=== PATIENT | male | born 1990 ===

== ENCOUNTER 2018-06-26 00:35 | Emergency (ER) | payer SELFPAY ==
--- NOTE | 2018-06-26 02:36 | C.PDOC ---
History Of Present Illness 27 year old male presents to the ED for evaluation of left elbow pain. Patient reports that 3 months ago he feel of an escalator and injured his left elbow. Patient states that at that time he did not seek any medical attention. Patient reports that 2 days ago he injured his left elbow again after hitting it against a metal pole. Patient states pain increased which prompted him to come for evaluation. Patient denies LOC, headache, weakness, numbness, fever, chills, nausea, vomit. Time Seen by Provider: 06/26/18 01:20 Chief Complaint (Nursing): Upper Extremity Problem/Injury History Per: Patient History/Exam Limitations: no limitations Onset/Duration Of Symptoms: Days (2) Current Symptoms Are (Timing): Still Present Quality: "Pain" Exacerbating Factor(s): Movement Recent travel outside of the [place]: No Additional History Per: Patient Past Medical History Reviewed: Historical Data, Nursing Documentation, Vital Signs Vital Signs: Last Vital Signs Temp 98.6 F 06/26/18 00:45 Pulse 70 06/26/18 00:45 Resp 18 06/26/18 00:45 BP 122/69 06/26/18 00:45 Pulse Ox 95 06/26/18 00:45 - Medical History PMH: No Chronic Diseases Denies: Chronic Kidney Disease Surgical History: No Surg Hx Family History: States: Unknown Family Hx - Social History Hx Alcohol Use: Yes Hx Substance Use: No - Immunization History Hx Tetanus Toxoid Vaccination: No Hx Influenza Vaccination: No Hx Pneumococcal Vaccination: No Review Of Systems Constitutional: Negative for: Fever, Chills Gastrointestinal: Negative for: Nausea, Vomiting Musculoskeletal: Positive for: Arm Pain Skin: Negative for: Rash Neurological: Negative for: Weakness, Numbness, Headache, Dizziness Physical Exam - Physical Exam Appears: Non-toxic, No Acute Distress Skin: Normal Color, Warm, Dry Head: Atraumatic, Normacephalic Eye(s): bilateral: Normal Inspection Neck: Normal ROM, Supple Extremity: No Normal ROM (decreased left elbow due to pain), Tenderness (left olecranon area), Capillary Refill (< 2 seconds), No Swelling Pulses: Left Radial: Normal, Right Radial: Normal Neurological/Psych: Oriented x3, Normal Speech, Normal Motor, Normal Sensation Gait: Steady ED Course And Treatment O2 Sat by Pulse Oximetry: 95 (ON RA) Pulse Ox Interpretation: Normal - Other Rad Left elbow X-Ray X-Ray: Interpreted by Me, Viewed By Me Interpretation: No FX, no dislocation Progress Note: Plan: - Left elbow X-Ray. Patrick wrap applied by RN. Patient was d/c home with Ortho follow up. Disposition - Disposition Referrals: [facility] at [facility] [Outside] Keny Beck III, MD [Staff Provider] - Disposition: HOME/ ROUTINE Disposition Time: 04:24 Condition: STABLE Additional Instructions: Follow up with Orthopedist within 2-3 days. Return to ED if feel worse. 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 - Scribe Statement The provider has reviewed the documentation as recorded by the Scribe Victorino Arguelles All medical record entries made by the Scribe were at my direction and personally dictated by me. I have reviewed the chart and agree that the record accurately reflects my personal performance of the history, physical exam, medical decision making, and the department course for this patient. I have also personally directed, reviewed, and agree with the discharge instructions and disposition.
[2018-06-26 04:08] VITALS: BP 113/62; PULSE 66; RESP 14; TEMP 97.7
[2018-06-26 04:26] VITALS: O2SAT 95
--- NOTE | 2018-06-26 08:17 | RAD ---
Left elbow three views HISTORY: Elbow injury. Pain. COMPARISON: None available. FINDINGS: No significant elbow joint effusion. No evidence of acute displaced fracture or dislocation. Suboptimal lateral view with suboptimal patient positioning. Repeat lateral view may be helpful clinically indicated. Vertically-oriented lucency through the medial cortex of the proximal medullary cavity of the proximal radius likely represents vascular groove. Impression: Negative acute. If pain persists, consider MRI. Suboptimal lateral view with suboptimal patient positioning. Repeat lateral view may be helpful if clinically indicated.
== END 2018-06-26 04:39 | disposition home or self-care (01) ==
LOC: C.ER 00:35
DX: M25.522 Pain in left elbow (principal)

== ENCOUNTER 2018-06-29 11:50 | Emergency (ER) | payer OTHER ==
[2018-06-29 12:37] LABS: SQUAMOUS EPITHIAL < 1 /hpf (0-5); URINE BILIRUBIN NEGATIVE (NEGATIVE); URINE BLOOD 1+ (NEGATIVE); URINE CLARITY Clear (Clear); URINE COLOR Yellow (YELLOW); URINE GLUCOSE (UA) NORMAL (Normal); URINE LEUKOCYTE ESTERASE TRACE Leu/uL (Negative); URINE PROTEIN NEGATIVE (NEGATIVE); URINE UROBILINOGEN NORMAL mg/dL (0.2-1.0)
[2018-06-29] MEDS ORDERED: cefTRIAXone (Rocephin) 250 mg Inj IM STA (13:41)
--- NOTE | 2018-06-29 13:43 | C.PDOC ---
History Of Present Illness 27 y/o male, otherwise well, presents to the ED complaining of dysuria for the past couple of days. Associated with some white penile discharge and itching to the groin area. Patient admits to having recent unprotected sex 15 days ago, and is concerned about possibility of STD. Otherwise he denies any fever, chills, nausea, vomiting, abdominal pain, or changes in bowel movements. Time Seen by Provider: 06/29/18 12:29 Chief Complaint (Nursing): Male Genitourinary History Per: Patient Onset/Duration Of Symptoms: Days Current Symptoms Are (Timing): Still Present Associated Symptoms: Urinary Symptoms Past Medical History Reviewed: Historical Data, Nursing Documentation, Vital Signs Vital Signs: Last Vital Signs Temp 98.1 F 06/29/18 12:12 Pulse 52 L 06/29/18 12:12 Resp 16 06/29/18 12:12 BP 129/57 L 06/29/18 12:12 Pulse Ox 98 06/29/18 12:12 - Medical History PMH: No Chronic Diseases Denies: Chronic Kidney Disease Family History: States: Unknown Family Hx - Social History Hx Alcohol Use: Yes Hx Substance Use: No - Immunization History Hx Tetanus Toxoid Vaccination: No Hx Influenza Vaccination: No Hx Pneumococcal Vaccination: No Review Of Systems Except As Marked, All Systems Reviewed And Found Negative. Constitutional: Negative for: Fever, Chills Gastrointestinal: Negative for: Nausea, Vomiting, Abdominal Pain, Diarrhea Genitourinary: Positive for: Dysuria, Penile Discharge (white), Other (Itching to groin area). Negative for: Incontinence, Scrotal Pain, Rash Musculoskeletal: Negative for: Back Pain Neurological: Negative for: Weakness Physical Exam - Physical Exam Appears: Non-toxic, No Acute Distress Skin: Warm, Dry Head: Atraumatic, Normacephalic Eye(s): bilateral: Normal Inspection Chest: Symmetrical Male Genital: Normal Inspection (uncircumsized male; no rash or herpitic lesions), No Testicular Tenderness, No Testicular Swelling, Other (No discharge noted on exam) Extremity: Bilateral: Atraumatic, Normal Color And Temperature Neurological/Psych: Oriented x3, Normal Speech ED Course And Treatment O2 Sat by Pulse Oximetry: 98 (RA) Pulse Ox Interpretation: Normal Medical Decision Making Medical Decision Making: Plan: UA and GC/chlamydia sent to the lab. UA shows trace leuks, +blood. Patient treated prophylactically with PO zithro and IM rocephin. Counseled regarding course of discharge and follow-up instructions. Disposition Counseled Patient/Family Regarding: Diagnosis, Need For Followup - Disposition Referrals: [facility] [Outside] Disposition: HOME/ ROUTINE Disposition Time: 13:42 Condition: STABLE Instructions: Urethritis Forms: [facility] (Japanese), General Discharge Instructions - POA Present On Arrival: None - Clinical Impression Clinical Impression: Urethritis - Scribe Statement The provider has reviewed the documentation as recorded by the Scribe (Eden Kenney) Provider Attestation: All medical record entries made by the Scribe were at my direction and personally dictated by me. I have reviewed the chart and agree that the record accurately reflects my personal performance of the history, physical exam, medical decision making, and the department course for this patient. I have also personally directed, reviewed, and agree with the discharge instructions and disposition.
[2018-06-29 13:49] VITALS: BP 101/63; PULSE 58; RESP 18; TEMP 98.7
[2018-06-29 14:38] VITALS: O2SAT 98
== END 2018-06-29 14:20 | disposition home or self-care (01) ==
LOC: C.ER 11:50
DX: N34.2 Other urethritis (principal)

== ENCOUNTER 2018-07-05 17:13 | Emergency (ER) | payer OTHER ==
[2018-07-05 17:26] VITALS: BP 112/70; PULSE 76; RESP 16; TEMP 97.8; O2SAT 98
--- NOTE | 2018-07-05 17:52 | C.PDOC ---
History Of Present Illness 27 y/o male presents to ED with persistent urethral discomfort and white discharge. Patient was seen in ED on 06/29 for same and treated for GC and chlamydia in the ED. Patient states he still feels the same. States he has not had sexual relations since his last visit. Denies dysuria, fever, chills, penile/ testicular pain or swelling. Denies any lesions. Time Seen by Provider: 07/05/18 17:26 Chief Complaint (Nursing): Male Genitourinary History Per: Patient History/Exam Limitations: no limitations Onset/Duration Of Symptoms: Days Current Symptoms Are (Timing): Still Present Past Medical History Reviewed: Historical Data, Nursing Documentation, Vital Signs Vital Signs: Last Vital Signs Temp 97.8 F 07/05/18 17:22 Pulse 76 07/05/18 17:22 Resp 16 07/05/18 17:22 BP 112/70 07/05/18 17:22 Pulse Ox 98 07/05/18 17:22 - Medical History PMH: Denies: Chronic Kidney Disease Surgical History: No Surg Hx Family History: States: Unknown Family Hx - Social History Hx Alcohol Use: Yes Hx Substance Use: No - Immunization History Hx Tetanus Toxoid Vaccination: No Hx Influenza Vaccination: No Hx Pneumococcal Vaccination: No Review Of Systems Constitutional: Negative for: Fever, Chills Gastrointestinal: Negative for: Abdominal Pain Genitourinary: Positive for: Penile Discharge, Other (Urethral discomfort). Negative for: Dysuria, Incontinence, Scrotal Pain, Rash, Penile Pain Physical Exam - Physical Exam Appears: Non-toxic, No Acute Distress Skin: Warm, Dry Head: Normacephalic Eye(s): bilateral: PERRL Chest: Symmetrical Respiratory: No Accessory Muscle Use Gastrointestinal/Abdominal: Soft, No Tenderness, No Distention Back: No CVA Tenderness Male Genital: Other ( exam deferred) Neurological/Psych: Oriented x3, Normal Speech ED Course And Treatment O2 Sat by Pulse Oximetry: 98 (RA) Pulse Ox Interpretation: Normal Medical Decision Making Medical Decision Making: Old chart reviewed, Pt with +chlamydia, notified of result in ED and that he needs to let partner know to get treated. since pt is still symptomatic, will add coverage for mycoplasma genitalium. Pt has already had 1 gram of zithromax in ed on last visit, so will prescribe moxifloxicin this time with med clinic f/u scheduled already for Thu. Disposition Counseled Patient/Family Regarding: Diagnosis, Need For Followup, Rx Given - Disposition Referrals: [facility] [Outside] Disposition: HOME/ ROUTINE Disposition Time: 17:52 Condition: GOOD Additional Instructions: Your test from last week was positive for chlamydia. Your sexual partner needs to get treated for this; please contact her. You were treated gor chlamydi in the ER last week. Sometimes other bacteria may cause urethritis. Please take moxifloxicin once a day for next 10 days. Please keep appointment at medical clinic on Thursday as scheduled and bring these papers with you to show doctor Nevarez prueba de la semana pasada fue positiva para la clamidia. Tu cathy sexual necesita ser tratada para esto; por favor pngase en contacto con roshan. Usted fue tratado gor chlamydi en la negrita de emergencias la semana pasada. Algunas veces otras bacterias pueden causar uretritis. [place] moxifloxicina priscilla vez al da bala los prximos 10 rizvi. 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 - Scribe Statement The provider has reviewed the documentation as recorded by the Scribe (Eden Kenney) All medical record entries made by the Scribe were at my direction and personally dictated by me. I have reviewed the chart and agree that the record accurately reflects my personal performance of the history, physical exam, medical decision making, and the department course for this patient. I have also personally directed, reviewed, and agree with the discharge instructions and disposition.
== END 2018-07-05 18:06 | disposition home or self-care (01) ==
LOC: C.ER 17:13
DX: N34.2 Other urethritis (principal)

== ENCOUNTER 2018-10-26 18:43 | Emergency (ER) | payer SELFPAY ==
[2018-10-26 18:43] VITALS: BMI 26.5
[2018-10-26 19:14] VITALS: BP 116/71; PULSE 80; RESP 18; TEMP 98.7; O2SAT 98
[2018-10-26] MEDS ORDERED: Bacitracin 500 Units/gm Oint Foilpak UD TOP ONE (20:18)
--- NOTE | 2018-10-26 20:40 | C.PDOC ---
History Of Present Illness 28 y/o male with hx rhinitis presents to ed for a 'painful cut' in his nose for several days. not taking anything for pain at home. denies putting anything into nose. Time Seen by Provider: 10/26/18 19:37 Chief Complaint (Nursing): ENT Problem History Per: Patient History/Exam Limitations: None Onset/Duration Of Symptoms: Days Current Symptoms Are (Timing): Still Present Past Medical History Reviewed: Historical Data, Nursing Documentation, Vital Signs Vital Signs: Last Vital Signs Temp 98.7 F 10/26/18 19:10 Pulse 80 10/26/18 19:10 Resp 18 10/26/18 19:10 BP 116/71 10/26/18 19:10 Pulse Ox 98 10/26/18 19:10 - Medical History PMH: No Chronic Diseases Denies: Chronic Kidney Disease Surgical History: No Surg Hx Family History: States: Unknown Family Hx - Social History Hx Alcohol Use: Yes Hx Substance Use: No - Immunization History Hx Tetanus Toxoid Vaccination: No Hx Influenza Vaccination: No Hx Pneumococcal Vaccination: No Review Of Systems Constitutional: Negative for: Fever, Chills ENT: Positive for: Other (painful cut to nose ). Negative for: Nose Discharge, Nose Congestion Respiratory: Negative for: Cough, Shortness of Breath Physical Exam - Physical Exam Appears: Non-toxic, No Acute Distress Skin: Normal Color, Warm, Dry Nose: Other (2mm abrsion to the medial nasal wall. no active bleeding ) Neurological/Psych: Normal Speech, Normal Cognition ED Course And Treatment O2 Sat by Pulse Oximetry: 98 (on RA) Pulse Ox Interpretation: Normal Medical Decision Making Medical Decision Making: Bacitracin TOP applied. Motrin PO given. On reassessment, patient is resting comfortably, showing no signs of distress and stable for discharge. Disposition - Disposition Referrals: [facility] at [facility] [Outside] Disposition: HOME/ ROUTINE Disposition Time: 20:38 Condition: GOOD Additional Instructions: Edison ibuprofeno para el dolor 600 mg por mes cada 6 horas. Aplique priscilla pequea cantidad de ungento antibitico, felicia bacitracina. al shahnaz afectada renay veces al da suavemente con priscilla punta q. Seguimiento en clnica mdica; llame para priscilla lavell. Take ibuprofen for pain 600 mg by mout every 6 hours. Apply small amount of antibiotiuc ointment, such as bacitracin. to affected area three times a day gently with a q tip. Follow up in medical clinic; call for an appointment. Instructions: Skin Abrasions (DC) Forms: [facility] (Vincentian), Gen Discharge Inst Vincentian Print Language: UPPER SORBIAN - Clinical Impression Clinical Impression: Nasal abrasion - PA / PROCESSING TECHNOLOGIST / Resident Statement MD/DO has reviewed & agrees with the documentation as recorded. - Scribe Statement The provider has reviewed the documentation as recorded by the Scribe (Crissy Claros) All medical record entries made by the Scribe were at my direction and personally dictated by me. I have reviewed the chart and agree that the record accurately reflects my personal performance of the history, physical exam, medical decision making, and the department course for this patient. I have also personally directed, reviewed, and agree with the discharge instructions and disposition.
== END 2018-10-26 20:44 | disposition home or self-care (01) ==
LOC: C.ER 18:43
DX: S00.31XA Abrasion of nose, initial encounter (principal); X58.XXXA Exposure to other specified factors, initial encounter

== ENCOUNTER 2018-11-07 09:51 | Emergency (ER) | payer SELFPAY ==
[2018-11-07 09:54] VITALS: BMI 24.9
[2018-11-07 09:56] VITALS: BP 112/73; PULSE 77; RESP 18; TEMP 98.9; O2SAT 100
--- NOTE | 2018-11-07 10:18 | C.PDOC ---
History Of Present Illness 28 y/o male, with no pertinent PMHx, comes in to ED with sore throat for the past 2 nights. Patient reports he has some mild pain with swallowing but no actual difficulty swallowing. Patient denies nausea or vomiting. No difficulty breathing. No neck stiffness. No enlarged lymph nodes in back of his neck. No trauma or fall. States he tried antiseptic last night but the pain did not improve, so he comes in to ED today. Denies body aches, fever, chills, or night sweats. Chief Complaint (Nursing): ENT Problem History Per: Patient History/Exam Limitations: None Onset/Duration Of Symptoms: Days Current Symptoms Are (Timing): Still Present Past Medical History Reviewed: Historical Data, Nursing Documentation, Vital Signs Vital Signs: Last Vital Signs Temp 98.9 F 11/07/18 09:54 Pulse 77 11/07/18 09:54 Resp 18 11/07/18 09:54 BP 112/73 11/07/18 09:54 Pulse Ox 100 11/07/18 09:54 - Medical History PMH: Denies: Chronic Kidney Disease Family History: States: No Known Family Hx - Social History Hx Alcohol Use: Yes Hx Substance Use: No - Immunization History Hx Tetanus Toxoid Vaccination: No Hx Influenza Vaccination: No Hx Pneumococcal Vaccination: No Review Of Systems Constitutional: Negative for: Fever, Chills, Sweats, Weakness Eyes: Negative for: Pain, Vision Change ENT: Positive for: Throat Pain (Sore throat, painful when swallowing). Negative for: Ear Pain, Ear Discharge, Nose Pain, Nose Discharge, Nose Congestion, Mouth Pain, Mouth Swelling Cardiovascular: Negative for: Chest Pain, Palpitations Respiratory: Negative for: Cough, Shortness of Breath, SOB with Excertion Gastrointestinal: Negative for: Nausea, Vomiting, Abdominal Pain Genitourinary: Negative for: Dysuria, Frequency Musculoskeletal: Negative for: Neck Pain Physical Exam - Physical Exam Appears: Well, Non-toxic, No Acute Distress Skin: Warm, Dry Head: Normacephalic, Other (No lower jaw swelling) Eye(s): bilateral: Normal Inspection, PERRL, EOMI Ear(s): Bilateral: Normal Nose: Normal Oral Mucosa: Moist Tongue: Normal Appearing Throat: No Erythema, No Mass, Other (uvula midline. No ludwigs) Neck: Normal, Normal ROM, Supple, Other (No meningeal signs) Lymphatic: Other (has left-sided cervical lympadenopathy, no posterior lymphadenopathy) Chest: Symmetrical Cardiovascular: Rhythm Regular, No Murmur Respiratory: No Rales, No Rhonchi, No Wheezing Gastrointestinal/Abdominal: Soft, No Tenderness Extremity: Bilateral: Normal Color And Temperature Neurological/Psych: Oriented x3, Normal Speech ED Course And Treatment O2 Sat by Pulse Oximetry: 100 (RA) Pulse Ox Interpretation: Normal Medical Decision Making Medical Decision Makin yr old well appearing male tolerating clears and solids w/ out hot potato voice or abnl oropharyngeal findings p/w sore throat. No chills or body aches. No meningeal signs. No abscess noted. No ludwigs. No dental complaints. Likely Viral URI vs strep. Viral URI vs. strep throat Plan: --Motrin 400 mg PO --Flu Swab --Rapid Strep 1051 +strep pain improved tolerated PO trial here w/ meds well pt in NAD, clear for d/c home w/ return indications and followup. Pt agreeable to plan. Disposition - Disposition Referrals: Aston Dubose MD [Staff Provider] - [facility] [Outside] [facility] [Outside] [facility] [Outside] Disposition: HOME/ ROUTINE Disposition Time: 10:53 Condition: GOOD Additional Instructions: MYRNA MERINO, thank you for letting us take care of you today. Your provider was Blake Lanier and you were treated for SORE THROAT. The emergency medical care you received today was directed at your acute symptoms. If you were prescribed any medication, please fill it and take as directed. It may take several days for your symptoms to resolve. Return to the Emergency Department if your symptoms worsen, do not improve, or if you have any other problems. Please contact your doctor or call one of the physicians/clinics you have been referred to that are listed on the Patient Visit Information form that is included in your discharge packet. Bring any paperwork you were given at discharge with you along with any medications you are taking to your follow up visit. Our treatment cannot replace ongoing medical care by a primary care provider outside of the emergency department. Thank you for allowing the [facility] team to be part of your care today. If you had an X-Ray or CT scan: A Radiologist will review the ED reading if any change in treatment is needed we will contact you. If you had a blood, urine, or wound culture: It will take several days for the results, if any change in treatment is needed we will contact you. If you had an STI test: It will take 48 hours for the results. Please call after 1 week if you have not heard back. Prescriptions: Amoxicillin [Amoxil 500 mg Cap] 500 mg PO BID 10 Days #20 cap Instructions: Sore Throat in Adults, Strep Throat (DC) Forms: [employer] (Wolof), [employer] (Ivorian), Work Excuse - Clinical Impression Clinical Impression: Strep pharyngitis - Scribe Statement The provider has reviewed the documentation as recorded by the Kate Barnhart Provider Attestation: All medical record entries made by the Kate were at my direction and personally dictated by me. I have reviewed the chart and agree that the record accurately reflects my personal performance of the history, physical exam, medical decision making, and the department course for this patient. I have also personally directed, reviewed, and agree with the discharge instructions and disposition.
[2018-11-07 10:41] LABS: INFLUENZA A B NEGATIVE FOR FLU A/B (NEGATIVE)
== END 2018-11-07 11:16 | disposition home or self-care (01) ==
LOC: C.ER 09:51
DX: J02.0 Streptococcal pharyngitis (principal)

== ENCOUNTER 2018-12-05 22:52 | Emergency (ER) | payer SELFPAY ==
[2018-12-05 22:53] VITALS: BMI 24.9
[2018-12-05 22:57] VITALS: BP 124/76; PULSE 58; RESP 16; TEMP 98.5; O2SAT 100
--- NOTE | 2018-12-06 00:30 | C.PDOC ---
History Of Present Illness 28 year old male presents to the ED c/o sore throat for the past 3 days. Patient reports 3 weeks ago he was diagnosed with strep throat and given antibiotics which he reports finishing. Patient states symptoms recurred, feels similar to previous episodes. Patient denies fever, chills, nausea, vomit, cough, congestion, rash, headache. Time Seen by Provider: 12/05/18 23:33 Chief Complaint (Nursing): ENT Problem History Per: Patient History/Exam Limitations: None Onset/Duration Of Symptoms: Days (3) Current Symptoms Are (Timing): Still Present Quality (Mouth/Throat): Other Anticoagulant/Antiplatlet Use?: No Recent Aspirin Use: No Past Medical History Reviewed: Historical Data, Nursing Documentation, Vital Signs Vital Signs: Last Vital Signs Temp 98.5 F 12/05/18 22:55 Pulse 58 L 12/05/18 22:55 Resp 16 12/05/18 22:55 BP 124/76 12/05/18 22:55 Pulse Ox 100 12/05/18 22:55 - Medical History PMH: No Chronic Diseases Denies: Chronic Kidney Disease Surgical History: No Surg Hx Family History: States: Unknown Family Hx - Social History Hx Alcohol Use: Yes Hx Substance Use: No - Immunization History Hx Tetanus Toxoid Vaccination: No Hx Influenza Vaccination: No Hx Pneumococcal Vaccination: No Review Of Systems Constitutional: Negative for: Fever, Chills ENT: Positive for: Throat Pain. Negative for: Nose Discharge, Nose Congestion, Throat Swelling Respiratory: Negative for: Cough, Shortness of Breath Gastrointestinal: Negative for: Nausea, Vomiting, Abdominal Pain Skin: Negative for: Rash Neurological: Negative for: Headache Physical Exam - Physical Exam Appears: Non-toxic, No Acute Distress Skin: Normal Color, Warm, Dry Head: Atraumatic, Normacephalic Eye(s): bilateral: Normal Inspection Ear(s): Bilateral: Normal Nose: No Discharge, Other (enlarged nasal turbinates ) Oral Mucosa: Moist Throat: Normal, No Erythema, No Exudate, No Mass Neck: Normal ROM, Supple Lymphatic: No Adenopathy (cervical ) Chest: Symmetrical Cardiovascular: Rhythm Regular Respiratory: Normal Breath Sounds, No Rales, No Rhonchi, No Wheezing Extremity: Normal ROM, No Tenderness, No Swelling Neurological/Psych: Oriented x3, Normal Speech, Normal Cognition Gait: Steady ED Course And Treatment O2 Sat by Pulse Oximetry: 100 (ON RA) Pulse Ox Interpretation: Normal Progress Note: Plan: - Throat culture. - Rapid strep. Rapid strep was negative, throat culture collected. Patient was advised to use OTC medications for his symptoms. Patient informed that when the throat culture resulted he will be contacted with findings. Disposition Counseled Patient/Family Regarding: Diagnosis, Need For Followup, Rx Given - Disposition Disposition: HOME/ ROUTINE Disposition Time: 00:28 Condition: STABLE Additional Instructions: Please continue motrin at least 600 mg PO Continue chloraseptic spray Take zyrtec PO Follow up with ENT Return to ER if worse Prescriptions: Cetirizine HCl [Zyrtec] 10 mg PO DAILY #14 capsule Instructions: Viral Pharyngitis Forms: [employer] ([place]) - Clinical Impression Clinical Impression: Pharyngitis - PA / [employer] / Resident Statement MD/DO has reviewed & agrees with the documentation as recorded. - Scribe Statement The provider has reviewed the documentation as recorded by the Scribe Victorino Arguelles All medical record entries made by the Scribe were at my direction and personally dictated by me. I have reviewed the chart and agree that the record accurately reflects my personal performance of the history, physical exam, medical decision making, and the department course for this patient. I have also personally directed, reviewed, and agree with the discharge instructions and disposition.
== END 2018-12-06 00:36 | disposition home or self-care (01) ==
LOC: C.ER 22:52
DX: J02.9 Acute pharyngitis, unspecified (principal)